=== PATIENT | female | born 1965 | race Two or more races ===

== ENCOUNTER 2018-05-08 08:55 | Emergency (ER) | payer SELFPAY ==
[~2018-05-08] VITALS: Ht 157.5 cm; Wt 64.0 kg
[2018-05-08] MEDS ORDERED: FAMOTIDINE 20 MG TABLET ONE (09:52)
[2018-05-08] MEDS ORDERED: FAMOTIDINE 20 MG TABLET PO ONE (10:00)
== END 2018-05-08 11:45 | disposition home or self-care (01) ==
LOC: ED 10:21
DX: L50.9 Urticaria, unspecified (principal); J02.9 Acute pharyngitis, unspecified
CPT/HCPCS: 87081; 87880; 99284; J7512; Q0177